=== PATIENT | male | born 1960 | race Caucasian/White ===

== ENCOUNTER 2020-10-25 01:25 | Emergency (ER) | payer OTHER ==
[2020-10-25 01:48] VITALS: BP 153/82; PULSE 75; TEMP 98.2; BMI 27.3
[2020-10-25] MEDS ORDERED: ACETAMINOPHEN 500 MG TABLET (FP) PO ONE (02:33)
[2020-10-25] MEDS ORDERED: ACETAMINOPHEN 500 MG TABLET (FP) ONE (02:47)
[2020-10-25] MEDS ORDERED: DIPHTH,PERTUSS(ACELL),TET 0.5 ML DISP.SYRIN IM ONE ×2 (03:27→03:33)
[2020-10-25] MEDS ORDERED: KETOROLAC TROMETHAMINE 30 MG/1 ML VIAL IM ONE (03:27)
[2020-10-25] MEDS ORDERED: KETOROLAC TROMETHAMINE 30 MG/1 ML VIAL ONE (03:32)
== END 2020-10-25 03:41 | disposition home or self-care (01) ==
LOC: JER 01:25
PROC: 3E0234Z Introduction of Serum, Toxoid and Vaccine into Muscle, Percutaneous Approach (ICD-10-PCS; principal; 2020-10-25)
PROC: 3E023GC Introduction of Other Therapeutic Substance into Muscle, Percutaneous Approach (ICD-10-PCS; principal; 2020-10-25)
DX: S51.011A Laceration without foreign body of right elbow, initial encounter (principal); M79.674 Pain in right toe(s); Y99.9 Unspecified external cause status
CPT/HCPCS: 73660-TC-FY; 90715; 99284-25